=== PATIENT | male | born 1940 | race Caucasian/White ===

== ENCOUNTER → 2016-07-04 | Outpatient (CLI) | payer MEDICARE, BC | LOC: COL.RAD 10:02 | DX: E34.0 Carcinoid syndrome (principal); K76.9 Liver disease, unspecified; N40.0 Benign prostatic hyperplasia without lower urinary tract symptoms | CPT/HCPCS: Q9967 ==

== ENCOUNTER → 2017-03-01 | Outpatient (CLI) | payer MEDICARE, BC | LOC: COL.RAD 11:13 | DX: Z08 Encounter for follow-up examination after completed treatment for malignant neoplasm (principal); K76.89 Other specified diseases of liver; Z98.890 Other specified postprocedural states; Z85.020 Personal history of malignant carcinoid tumor of stomach | CPT/HCPCS: Q9967 ==

== ENCOUNTER → 2017-12-26 | Outpatient (CLI) | payer MEDICARE, BC | LOC: COL.RAD 07:27 | DX: C7A.092 Malignant carcinoid tumor of the stomach (principal); J84.10 Pulmonary fibrosis, unspecified; N40.0 Benign prostatic hyperplasia without lower urinary tract symptoms; K76.89 Other specified diseases of liver; Z98.890 Other specified postprocedural states; Z90.49 Acquired absence of other specified parts of digestive tract; Z96.641 Presence of right artificial hip joint | CPT/HCPCS: Q9967 ==

== ENCOUNTER → 2020-02-03 | Outpatient (CLI) | payer MEDICARE, BC | LOC: COL.RAD 14:25 | DX: C7A.8 Other malignant neuroendocrine tumors (principal); Z90.49 Acquired absence of other specified parts of digestive tract; Z96.641 Presence of right artificial hip joint | CPT/HCPCS: Q9967 ==

== ENCOUNTER 2023-11-15 07:07 | Day surgery (SDC) | payer MEDICARE, BC ==
[~2023-11-15] VITALS: Ht 175.3 cm; Wt 95.3 kg
[~2023-11-15 07:07] MED LIST: LR 1,000 ML IV SCH; Ondansetron 4 MG/2 ML VIAL IV PRN
[2023-11-15 07:27] VITALS: BP 143/76; PULSE 60; TEMP 97.2
[2023-11-15] MEDS ORDERED: COUMADIN 5MG5 MG/TAB PO (07:34)
[2023-11-15] MEDS ORDERED: LIPITOR 40MG TA40 MG PO (07:34)
[2023-11-15] MEDS ORDERED: NEXIUM 40MG40 MG PO (07:34)
[2023-11-15] MEDS ORDERED: FLOMAX 0.40.4 MG/CAP PO (07:35)
[2023-11-15] MEDS ORDERED: ZIAC 5/6.25MG T1 TAB PO (07:35)
--- NOTE | 2023-11-15 07:51 | NUR ---
The patient ambulated back to [facility] independently using a steady gait and appeared to tolerate the activity well. Vital signs obtained. Consent signed. 20G IV started in right wrist with one stick, LR infusing without difficulty. Assessment completed. Home medications reconcilled. No coumadin since SaturdayNovember 08. Warm blanket provided. Family brought back to be at his bedside. Denies any further needs.
[2023-11-15 08:50] VITALS: BP 96/59; PULSE 70; TEMP 97.8
--- NOTE | 2023-11-15 08:50 | NUR ---
PATIENT RETURNS TO [facility] IN ENDOSCOPY. HE IS ALERT AND ORIENTED. VS WNL. AND SON AT BEDSIDE. CALL LIGHT WITHIN REACH. PATIENT REQUESTS COFFEE AND WATER TO DRINK. WAITING FOR PHYSICIAN TO SPEAK WITH PATIENT. WILL CONTINUE TO MONITOR.
[2023-11-15 09:05] VITALS: BP 119/78; PULSE 63
--- NOTE | 2023-11-15 09:05 | NUR ---
PATIENT IS DOING WELL. HE DENIES ANY PAIN OR NAUSEA AFTER DRINKING. IV DISCONTINUED. PHYSICIAN AT BEDSIDE. VS WNL. WILL CONTINUE TO MONITOR.
[2023-11-15 09:20] VITALS: BP 128/71; PULSE 58
--- NOTE | 2023-11-15 09:20 | NUR ---
PATIENT IS READY FOR DISCHARGE. LAST SET OF VITALS WNL. DISCHARGE INSTRUCTIONS REVIEWED WITH PATIENT AND FAMILY. WILL DISCHARGE VIA WHEELCHAIR ONCE PATIENT IS DRESSED.
== END 2023-11-15 09:24 | disposition home or self-care (01) ==
LOC: SDCO 07:07
DX: E16.4 Increased secretion of gastrin (principal); K21.9 Gastro-esophageal reflux disease without esophagitis; I48.91 Unspecified atrial fibrillation; D3A.092 Benign carcinoid tumor of the stomach; D3A.8 Other benign neuroendocrine tumors; Z87.19 Personal history of other diseases of the digestive system; Z79.01 Long term (current) use of anticoagulants; Z86.718 Personal history of other venous thrombosis and embolism; Z79.899 Other long term (current) drug therapy
CPT/HCPCS: J2704; J7120